=== PATIENT | male | born 1940 | race Caucasian/White ===

== ENCOUNTER → 2016-08-07 | Outpatient (CLI) | payer OTHER ==
[2016-08-07 10:05] LABS: Basophils # (auto) 0 uL; Basophils % (auto) 0.5 % (0.0-2.0); Eosinophils # (auto) 0.1 uL; Eosinophils % (auto) 1.6 % (0.0-7.0); Hematocrit 44.3 % (41.0-53.0); Hemoglobin 13.9 g/dL (13.5-17.5); Lymphocytes # (auto) 1.3 uL; Lymphocytes % (auto) 18.9 % (10.0-50.0); Mean Corpuscular Hemoglobin 30.6 pg (28.0-32.0); Mean Corpuscular Hgb Conc. 31.3 g/dL (32.0-36.0); Mean Corpuscular Volume 97.6 fL (80.0-100.0); Monocytes # (auto) 0.4 uL; Monocytes % (auto) 6.2 % (0.0-12.0); Neutrophils # (auto) 4.9 uL; Neutrophils % (auto) 72.8 % (37.0-80.0); Platelet Count (auto) 256 10^3/uL (140-450); Red Cell Distribution Width 13.2 % (11.6-16.0); White Blood Cell 6.7 10^3/uL (4.4-10.8)
[2016-08-07 10:20] LABS: Urine Bilirubin Negative (Negative); Urine Blood Negative /uL (Negative); Urine Color Yellow (Yellow); Urine Glucose Normal (Normal); Urine Ketone Negative (Negative); Urine Mucus FEW (None Seen); Urine Nitrite Negative (Negative); Urine RBC 1 /hpf (0 - 3); Urine Squamous Epithelial Cell FEW /hpf (<5); Urine Urobilinogen Normal (Negative); Urine pH 5.5 (5.0-8.0)
[2016-08-07 10:41] LABS: Albumin 3.9 g/dL (3.4-5.0); BUN/Creatinine Ratio 26.9; Bilirubin, Total 1.1 mg/dL (0.2-1.0); Potassium 4.2 mmol/L (3.5-5.1); Total Protein 7.8 g/dL (6.4-8.2)
== END | disposition home or self-care (01) ==
LOC: LAB 08:03
DX: I10 Essential (primary) hypertension (principal); R97.20 Elevated prostate specific antigen [PSA]; E55.9 Vitamin D deficiency, unspecified
CPT/HCPCS: 36415; 80053; 80061; 81001; 82306; 84153; 84154; 84443; 85025

== ENCOUNTER → 2016-08-20 | Outpatient (CLI) | payer OTHER ==
[2016-08-20 09:31] LABS: Basophils # (auto) 0 uL; Basophils % (auto) 0.4 % (0.0-2.0); Eosinophils # (auto) 0.2 uL; Eosinophils % (auto) 2.4 % (0.0-7.0); Hematocrit 42.3 % (41.0-53.0); Hemoglobin 14.1 g/dL (13.5-17.5); Lymphocytes # (auto) 1.5 uL; Lymphocytes % (auto) 22.8 % (10.0-50.0); Mean Corpuscular Hemoglobin 31.7 pg (28.0-32.0); Mean Corpuscular Hgb Conc. 33.3 g/dL (32.0-36.0); Mean Corpuscular Volume 95.1 fL (80.0-100.0); Mean Platelet Volume 7.5 fL (7.4-10.4); Monocytes # (auto) 0.5 uL; Monocytes % (auto) 8.1 % (0.0-12.0); Neutrophils # (auto) 4.4 uL; Neutrophils % (auto) 66.3 % (37.0-80.0); Platelet Count (auto) 236 10^3/uL (140-450); Red Cell Distribution Width 13.4 % (11.6-16.0); White Blood Cell 6.6 10^3/uL (4.4-10.8)
[2016-08-20 09:49] LABS: Albumin 3.8 g/dL (3.4-5.0); Calcium 9.2 mg/dL (8.5-10.1); Potassium 4.4 mmol/L (3.5-5.1); Total Protein 7.5 g/dL (6.4-8.2)
== END | disposition home or self-care (01) ==
LOC: LAB 08:46
PROVIDERS: ATTEND Internal Medicine
DX: R97.20 Elevated prostate specific antigen [PSA] (principal)
CPT/HCPCS: 36415; 80053; 83615; 84153; 84154; 85025

== ENCOUNTER → 2017-01-01 | Outpatient (CLI) | payer OTHER ==
[2017-01-01 10:40] LABS: Basophils # (auto) 0 uL; Basophils % (auto) 0.7 % (0.0-2.0); CONDITION Y; Eosinophils # (auto) 0.1 uL; Hematocrit 41.8 % (41.0-53.0); Hemoglobin 13.9 g/dL (13.5-17.5); Lymphocytes # (auto) 1.2 uL; Lymphocytes % (auto) 19.6 % (10.0-50.0); Mean Corpuscular Hemoglobin 32.3 pg (28.0-32.0); Mean Corpuscular Hgb Conc. 33.3 g/dL (32.0-36.0); Mean Corpuscular Volume 96.9 fL (80.0-100.0); Mean Platelet Volume 8.1 fL (7.4-10.4); Monocytes # (auto) 0.4 uL; Monocytes % (auto) 6.6 % (0.0-12.0); Neutrophils # (auto) 4.6 uL; Neutrophils % (auto) 72.1 % (37.0-80.0); Platelet Count (auto) 247 10^3/uL (140-450); Red Cell Distribution Width 13.4 % (11.6-16.0); White Blood Cell 6.4 10^3/uL (4.4-10.8)
[2017-01-01 11:15] LABS: Urine Bilirubin Negative (Negative); Urine Blood Negative /uL (Negative); Urine Ca Oxalate Crystal FEW (None Seen); Urine Color Yellow (Yellow); Urine Glucose Normal (Normal); Urine Ketone Negative (Negative); Urine Nitrite Negative (Negative); Urine RBC 1 /hpf (0 - 3); Urine Squamous Epithelial Cell FEW /hpf (<5); Urine Urobilinogen Normal (Negative)
[2017-01-01 11:41] LABS: Albumin 3.6 g/dL (3.4-5.0); Bilirubin, Total 0.9 mg/dL (0.2-1.0); Calcium 9.3 mg/dL (8.5-10.1); Total Protein 7.1 g/dL (6.4-8.2)
== END | disposition home or self-care (01) ==
LOC: LAB 08:47
PROVIDERS: ATTEND Internal Medicine
DX: E55.9 Vitamin D deficiency, unspecified (principal); I10 Essential (primary) hypertension; R92.0 Mammographic microcalcification found on diagnostic imaging of breast
CPT/HCPCS: 36415; 80053; 80061; 81001; 82306; 82607; 83036; 83615; 84153; 84154; 84443; 85025

== ENCOUNTER → 2017-05-19 | Outpatient (CLI) | payer OTHER ==
[2017-05-19 09:27] LABS: Basophils # (auto) 0 uL; Basophils % (auto) 0.6 % (0.0-2.0); Eosinophils # (auto) 0.1 uL; Eosinophils % (auto) 2.2 % (0.0-7.0); Hematocrit 41.7 % (41.0-53.0); Hemoglobin 14.4 g/dL (13.5-17.5); Lymphocytes # (auto) 1.7 uL; Mean Corpuscular Hemoglobin 32.7 pg (28.0-32.0); Mean Corpuscular Hgb Conc. 34.5 g/dL (32.0-36.0); Mean Corpuscular Volume 94.7 fL (80.0-100.0); Mean Platelet Volume 7.2 fL (6.9-10.8); Monocytes # (auto) 0.5 uL; Monocytes % (auto) 7.3 % (0.0-12.0); Neutrophils # (auto) 4.4 uL; Neutrophils % (auto) 64.9 % (37.0-80.0); Platelet Count (auto) 181 10^3/uL (140-450); Red Cell Distribution Width 13.1 % (11.8-14.3); White Blood Cell 6.8 10^3/uL (4.4-10.8)
[2017-05-19 10:32] LABS: Albumin 3.7 g/dL (3.4-5.0); BUN/Creatinine Ratio 27.5; Calcium 8.6 mg/dL (8.5-10.1); Total Protein 7.7 g/dL (6.4-8.2)
[2017-05-20 08:07] LABS: PSA Free 1.08 ng/mL
[2017-05-20 12:07] LABS: Prostate Specific Antigen 10.9 ng/mL (0.0-4.0)
== END | disposition home or self-care (01) ==
LOC: LAB 08:57
PROVIDERS: ATTEND Internal Medicine
DX: C61 Malignant neoplasm of prostate (principal)
CPT/HCPCS: 36415; 80053; 83615; 84153; 84154; 85025

== ENCOUNTER → 2017-09-15 | Outpatient (CLI) | payer OTHER ==
[2017-09-15 08:52] LABS: Basophils # (auto) 0 uL; Basophils % (auto) 0.4 % (0.0-2.0); Eosinophils # (auto) 0.1 uL; Eosinophils % (auto) 1.4 % (0.0-7.0); Hematocrit 46.2 % (41.0-53.0); Hemoglobin 15.3 g/dL (13.5-17.5); Lymphocytes # (auto) 1.6 uL; Lymphocytes % (auto) 17.7 % (10.0-50.0); Mean Corpuscular Hgb Conc. 33.2 g/dL (32.0-36.0); Mean Corpuscular Volume 96.6 fL (80.0-100.0); Monocytes # (auto) 0.7 uL; Monocytes % (auto) 7.7 % (0.0-12.0); Neutrophils # (auto) 6.5 uL; Neutrophils % (auto) 72.8 % (37.0-80.0); Platelet Count (auto) 174 10^3/uL (140-450); Red Blood Cells 4.79 10^6/uL (4.5-5.90); Red Cell Distribution Width 13.6 % (11.8-14.3); White Blood Cell 8.9 10^3/uL (4.4-10.8)
[2017-09-15 10:38] LABS: Albumin 3.8 g/dL (3.4-5.0); BUN/Creatinine Ratio 21.2; Bilirubin, Total 0.9 mg/dL (0.2-1.0); Calcium 8.8 mg/dL (8.5-10.1); Total Protein 8.1 g/dL (6.4-8.2)
== END | disposition home or self-care (01) ==
LOC: LAB 08:37
PROVIDERS: ATTEND Internal Medicine
DX: C61 Malignant neoplasm of prostate (principal)
CPT/HCPCS: 36415; 80053; 83615; 84153; 85025

== ENCOUNTER → 2018-04-01 | Outpatient (CLI) | payer OTHER ==
[2018-04-01 07:53] LABS: Basophils # (auto) 0 uL; Basophils % (auto) 0.6 % (0.0-2.0); Eosinophils # (auto) 0.1 uL; Eosinophils % (auto) 1.3 % (0.0-7.0); Hematocrit 40.1 % (41.0-53.0); Hemoglobin 13.3 g/dL (13.5-17.5); Lymphocytes # (auto) 1.4 uL; Lymphocytes % (auto) 18.8 % (10.0-50.0); Mean Corpuscular Hemoglobin 32.4 pg (28.0-32.0); Mean Corpuscular Hgb Conc. 33.1 g/dL (32.0-36.0); Mean Corpuscular Volume 97.8 fL (80.0-100.0); Monocytes # (auto) 0.6 uL; Monocytes % (auto) 7.9 % (0.0-12.0); Neutrophils # (auto) 5.2 uL; Neutrophils % (auto) 71.4 % (37.0-80.0); Platelet Count (auto) 189 10^3/uL (140-450); Red Cell Distribution Width 13.4 % (11.8-14.3); White Blood Cell 7.3 10^3/uL (4.4-10.8)
[2018-04-01 09:30] LABS: Albumin 3.5 g/dL (3.4-5.0); Calcium 8.4 mg/dL (8.5-10.1); Total Protein 7.3 g/dL (6.4-8.2)
== END | disposition home or self-care (01) ==
LOC: LAB 07:22
PROVIDERS: ATTEND Internal Medicine
DX: C61 Malignant neoplasm of prostate (principal)
CPT/HCPCS: 36415; 80053; 83615; 84153; 85025

== ENCOUNTER → 2018-06-30 | Outpatient (CLI) | payer OTHER, MEDICARE ==
[2018-06-30 10:40] LABS: Basophils # (auto) 0 uL; Basophils % (auto) 0.3 % (0.0-2.0); Eosinophils # (auto) 0.1 uL; Eosinophils % (auto) 1.8 % (0.0-7.0); Hematocrit 41.2 % (41.0-53.0); Hemoglobin 13.9 g/dL (13.5-17.5); Lymphocytes # (auto) 1.1 uL; Lymphocytes % (auto) 18.2 % (10.0-50.0); Mean Corpuscular Hemoglobin 32.8 pg (28.0-32.0); Mean Corpuscular Hgb Conc. 33.8 g/dL (32.0-36.0); Mean Corpuscular Volume 97.3 fL (80.0-100.0); Monocytes # (auto) 0.5 uL; Neutrophils # (auto) 4.2 uL; Neutrophils % (auto) 71.7 % (37.0-80.0); Nucleated Red Blood Cells % 0.1 %; Platelet Count (auto) 220 10^3/uL (140-450); Red Blood Cells 4.23 10^6/uL (4.5-5.90); Red Cell Distribution Width 13.5 % (11.8-14.3); White Blood Cell 5.9 10^3/uL (4.4-10.8)
[2018-06-30 10:50] LABS: Calcium 8.6 mg/dL (8.5-10.1); Potassium 3.8 mmol/L (3.5-5.1)
[2018-06-30 10:56] LABS: Albumin 3.9 g/dL (3.4-5.0); BUN/Creatinine Ratio 19.3; Bilirubin, Total 1.1 mg/dL (0.2-1.0); Total Protein 7.5 g/dL (6.4-8.2)
== END | disposition home or self-care (01) ==
LOC: LAB 09:13
PROVIDERS: ATTEND Internal Medicine
DX: C61 Malignant neoplasm of prostate (principal)
CPT/HCPCS: 36415; 80053; 83615; 84153; 85025

== ENCOUNTER → 2018-10-13 | Outpatient (CLI) | payer OTHER, MEDICARE ==
[2018-10-13 12:38] LABS: Basophils # (auto) 0.1 uL; Basophils % (auto) 0.7 % (0.0-2.0); Eosinophils # (auto) 0 uL; Eosinophils % (auto) 0.5 % (0.0-7.0); Hematocrit 42.3 % (41.0-53.0); Hemoglobin 14.1 g/dL (13.5-17.5); Lymphocytes # (auto) 1.3 uL; Lymphocytes % (auto) 17.7 % (10.0-50.0); Mean Corpuscular Hemoglobin 32.7 pg (28.0-32.0); Mean Corpuscular Hgb Conc. 33.3 g/dL (32.0-36.0); Mean Corpuscular Volume 98.1 fL (80.0-100.0); Monocytes # (auto) 0.6 uL; Monocytes % (auto) 7.4 % (0.0-12.0); Neutrophils # (auto) 5.5 uL; Neutrophils % (auto) 73.7 % (37.0-80.0); Nucleated Red Blood Cells % 0.1 %; Platelet Count (auto) 225 10^3/uL (140-450); Red Blood Cells 4.31 10^6/uL (4.5-5.90); White Blood Cell 7.5 10^3/uL (4.4-10.8)
[2018-10-13 13:28] LABS: Albumin 3.5 g/dL (3.4-5.0); Calcium 9.3 mg/dL (8.5-10.1)
[2018-10-13 13:31] LABS: BUN/Creatinine Ratio 22.4; Bilirubin, Total 0.9 mg/dL (0.2-1.0); Total Protein 7.3 g/dL (6.4-8.2)
== END | disposition home or self-care (01) ==
LOC: LAB 12:20
PROVIDERS: ATTEND Internal Medicine
DX: C61 Malignant neoplasm of prostate (principal)
CPT/HCPCS: 36415; 80053; 83615; 84153; 85025

== ENCOUNTER → 2018-12-31 | Outpatient (CLI) | payer OTHER ==
[~2018-12-31] MED LIST: AMIO200T33 PO; APIX5TAB PO; B-CO1TAB32 PO; CHOL20007 PO; CLIN1CAP4 PO; LEVO500T21 PO; SACC250C PO; TAM04C PO; VITA80009 PO
== END | disposition home or self-care (01) ==
LOC: XYW 09:51
PROVIDERS: ATTEND Internal Medicine
DX: I07.1 Rheumatic tricuspid insufficiency (principal); R42 Dizziness and giddiness
CPT/HCPCS: 93306

== ENCOUNTER → 2019-02-04 | Outpatient (CLI) | payer OTHER ==
[~2019-02-04] MED LIST changes: -CLIN1CAP4 PO; +CLIN300C8 PO
[2019-02-04 15:37] LABS: Basophils # (auto) 0 uL; Basophils % (auto) 0.7 % (0.0-2.0); Eosinophils # (auto) 0.1 uL; Hematocrit 38.8 % (41.0-53.0); Hemoglobin 12.7 g/dL (13.5-17.5); Lymphocytes # (auto) 1.1 uL; Lymphocytes % (auto) 20.5 % (10.0-50.0); Mean Corpuscular Hemoglobin 31.6 pg (28.0-32.0); Mean Corpuscular Hgb Conc. 32.6 g/dL (32.0-36.0); Mean Corpuscular Volume 96.8 fL (80.0-100.0); Monocytes # (auto) 0.5 uL; Monocytes % (auto) 8.7 % (0.0-12.0); Neutrophils # (auto) 3.6 uL; Neutrophils % (auto) 69.1 % (37.0-80.0); Platelet Count (auto) 195 10^3/uL (140-450); Red Blood Cells 4.01 10^6/uL (4.5-5.90); Red Cell Distribution Width 15.5 % (11.8-14.3); White Blood Cell 5.2 10^3/uL (4.4-10.8)
[2019-02-04 17:27] LABS: Potassium 4.1 mmol/L (3.5-5.1)
[2019-02-04 17:35] LABS: Albumin 2.9 g/dL (3.4-5.0); BUN/Creatinine Ratio 19.7; Bilirubin, Total 0.8 mg/dL (0.2-1.0); Calcium 8.5 mg/dL (8.5-10.1); Total Protein 6.3 g/dL (6.4-8.2)
== END | disposition home or self-care (01) ==
LOC: LAB 15:15
PROVIDERS: ATTEND Internal Medicine
DX: C61 Malignant neoplasm of prostate (principal); R97.20 Elevated prostate specific antigen [PSA]
CPT/HCPCS: 36415; 80053; 83615; 84153; 85025

== ENCOUNTER 2019-02-05 11:12 | Inpatient (IN) | payer OTHER ==
[~2019-02-05] VITALS: Ht 175.3 cm; Wt 54.0 kg
[2019-02-05] MEDS ORDERED: CLINDAMYCIN 600MG IV 50 ML IV ONE (12:00)
[2019-02-05 12:38] LABS: Basophils # (auto) 0 uL; Basophils % (auto) 0.6 % (0.0-2.0); Eosinophils # (auto) 0 uL; Hematocrit 39.1 % (41.0-53.0); Hemoglobin 12.8 g/dL (13.5-17.5); Lymphocytes % (auto) 19.4 % (10.0-50.0); Mean Corpuscular Hemoglobin 31.9 pg (28.0-32.0); Mean Corpuscular Hgb Conc. 32.8 g/dL (32.0-36.0); Mean Corpuscular Volume 97.2 fL (80.0-100.0); Monocytes # (auto) 0.4 uL; Monocytes % (auto) 8.5 % (0.0-12.0); Neutrophils # (auto) 3.7 uL; Neutrophils % (auto) 70.5 % (37.0-80.0); Platelet Count (auto) 182 10^3/uL (140-450); Red Blood Cells 4.02 10^6/uL (4.5-5.90); Red Cell Distribution Width 15.7 % (11.8-14.3); White Blood Cell 5.2 10^3/uL (4.4-10.8)
[2019-02-05 12:53] LABS: INR 1.16 (0.9-1.15); Partial Thromboplastin Time 35.8 sec (23.64-32.05)
[2019-02-05] MEDS ORDERED: LIDOCAINE 2% JELLY 11ml (GLYDO) UR ONE (13:00)
[2019-02-05 13:01] LABS: Alanine Aminotransferase 150 U/L (16-61); Albumin 2.9 g/dL (3.4-5.0); Anion Gap 5 (5-15); Aspartate Aminotransferase 127 U/L (15-37); BUN/Creatinine Ratio 20.7; Blood Urea Nitrogen 31 mg/dL (7-18); Calcium 8.6 mg/dL (8.5-10.1); Carbon Dioxide 30 mmol/L (21-32); Chloride 108 mmol/L (98-107); GFR African American 58 mL/min; GFR Non-African American 48 mL/min; Glucose 103 mg/dL (74-106); Potassium 3.9 mmol/L (3.5-5.1); Sodium 143 mmol/L (136-145)
[2019-02-05 13:06] LABS: Alkaline Phosphatase 97 U/L (45-117); Bilirubin, Total 0.9 mg/dL (0.2-1.0); Total Protein 6.3 g/dL (6.4-8.2)
[2019-02-05] MEDS ORDERED: traMADol HCL 50 MG TAB PO PRN (13:30)
[2019-02-05] MEDS ORDERED: ACETAMINOPHEN 500 MG TAB PO PRN (13:30)
[2019-02-05] MEDS ORDERED: PROMETHAZINE HCL 25 MG/ML 1ML IV PRN (13:30)
[2019-02-05] MEDS ORDERED: TEMAZEPAM 15 MG CAP PO PRN (13:30)
[2019-02-05] MEDS ORDERED: LACTULOSE 20Gm/30ML SOLN PO PRN (13:30)
[2019-02-05] MEDS: SODIUM CHLORIDE 0.9% 1,000 ML IV SCH (13:43)
[2019-02-05] MEDS: cefTRIAXone 1GM/50ML D5W 50 ML IV SCH (14:16)
[2019-02-05 14:19] LABS: Urine Bacteria FEW /hpf (None Seen); Urine Blood 1+ /uL (Negative); Urine Specific Gravity 1.019 (1.001-1.035); Urine WBC 216 /hpf (0 - 3)
--- NOTE | 2019-02-05 15:15 | NUR ---
MS admit from ER SHEA GARCIA Can admitted to MS. Patient oriented to Louise Chambers primary RN, unit, room, bed, and unit policies regarding patient care and visiting hours. Patient weighed by bed scale and encouraged to call if they need something. All questions and concerns addressed, patient verbalized understanding. Instructed patient on POC, fall precautions and to call for assistance. Patient verbalized understanding, reinforcement needed. Patient is A&Ox x2 (self, place). Bed in lowest locked position with x2 side rails up and call light within reach. Patient demonstrated proper use of the call light. Will continue to monitor q1hr & PRN.
[2019-02-05] MEDS ORDERED: APIX5TAB PO (15:51)
[2019-02-05 17:00] VITALS: BP 121/59
--- NOTE | 2019-02-05 17:00 | NUR ---
Visitor at bedside Nunu Gutierres at bedside.
[2019-02-05 17:02] VITALS: BP 121/59
--- NOTE | 2019-02-05 17:40 | NUR ---
WOUND CARE NOTE: Wound care in to see patient per wound care request regarding multiple pressure injuries, skin issue that are noted present on admission. Patient is 78 years old male admitted for L Foot Pressure Injuries. Patient is resting in bed in Rm. 217B. He's awake, alert and follow simple direction. He's in no stated pain at this time however mild pain noted upon turning. Patient needs assistance in turning and repositioning. His Russ score is 15. Skin/wound assessment done with the assistance of patient's nurse, ABDI Gil. Noted patient's posterior medial back has intact DTI measuring 5x4cm, dark red with blister. His sacrum has 8x8cm open, evolving DTI, dark maroon with scant serosanguineous drainage. Deana care given, applied Z Guard cream and covered with Opti foam sacral dressing. Patient's R heel has DTI that looks evolving to eschar. The proximal aspect is soft and boggy and the lateral area has hard eschar. Patient's L heel has 2.5x4cm eschar wound (Unstageable pressure injury)Wound is covered with black and yellow necrotic tissue, wound edges is red. Bilateral heel pressure injures has no drainage and odor. Bedside nurse, applied protective foam dressing. Redness/abrasion noted to patient's L posterolateral calf. Patient is unable to give information about his wounds. Photograph of patient's wounds are taken for reference. Patient tolerated well, repositioned for comfort. Bed in low position, call mcpherson on hand with all safety precautions in placed. RECOMMENDATION: BID/PRN dressing change sacral wound per MD order, Dietary consult, frequent turning and repositioning schedule as condition permits, redistribute pressure points with pillows, air mattress (ordered), Foam boots to BLE , continue monitoring by wound care while patient is hospitalized. Addendum: 02/05/19 at 1917 by Miladis Alegre RN Amended: Links added.
--- NOTE | 2019-02-05 17:49 | NUR ---
barrel lathe operator was at bedside Wound care provided. This RN was at bedside.
--- NOTE | 2019-02-05 18:30 | NUR ---
Closing note patient resting in bed with even and unlabored respirations, no distress noted. Fall precautions in place with bed in lowest locked position with call light within reach. The dressings to the right & left foot are clean, dry and intact.
--- NOTE | 2019-02-05 18:38 | NUR ---
MRSA swab collected and sent to lab per MD's order.
--- NOTE | 2019-02-05 19:22 | NUR ---
Care endorsed to ABDI Lucas.
--- NOTE | 2019-02-05 20:15 | NUR ---
PT TRANSFERRED TO SPECIALTY BED WITH AIR MATTRESS NOW.
[2019-02-05 21:43] VITALS: BP 98/44
[2019-02-05] MEDS: CLINDAMYCIN 600MG IV 50 ML IV SCH (21:44)
[2019-02-06 05:00] VITALS: BP 115/52
[2019-02-06] MEDS: SODIUM CHLORIDE 0.9% 1,000 ML IV SCH ×3 (06:07→19:24)
[2019-02-06] MEDS: CLINDAMYCIN 600MG IV 50 ML IV SCH ×3 (06:07→22:06)
[2019-02-06 06:39] LABS: Albumin 2.6 g/dL (3.4-5.0); BUN/Creatinine Ratio 22.7; Bilirubin, Total 0.7 mg/dL (0.2-1.0); Calcium 8.3 mg/dL (8.5-10.1); Total Protein 5.9 g/dL (6.4-8.2)
--- NOTE | 2019-02-06 07:30 | NUR ---
Opening Shift Note Assumed care of patient, awake and alert. No S/S of distress/SOB or pain. Instructed on POC and to call for assist PRN, will continue to monitor for changes Q1hr and PRN.
[2019-02-06 08:00] VITALS: BP 122/58
--- NOTE | 2019-02-06 08:22 | NUR ---
Dr. Marte in to see patient for podiatry consult. Per Dr. Marte, patient needs sirisha boots, leave heels open to air.
[2019-02-06] MEDS: PANTOPRAZOLE 40 MG TAB PO SCH (09:53)
[2019-02-06] MEDS: ENOXAPARIN SOD 40 MG/0.4 ML SYRINGE SC SCH (09:53)
[2019-02-06] MEDS: cefTRIAXone 1GM/50ML D5W 50 ML IV SCH (09:54)
[2019-02-06 12:00] VITALS: BP 98/48
--- NOTE | 2019-02-06 13:00 | NUR ---
Patient is NPO for US gallbladder.
--- NOTE | 2019-02-06 14:15 | NUR ---
Patient cleaned and repositioned. [place] boots to legs. Linens changed. Will continue to monitor.
[2019-02-06 16:58] VITALS: BP 104/55
--- NOTE | 2019-02-06 19:30 | NUR ---
Opening Shift Note Pt is resting in bed with resp rate even and unlabored. No s/s of any distress noted at this time. Pt on air mattress, bilat heels w/ no drsgs, and wearing sirisha boots. Pt is NPO awaiting US and dinner waiting at bedside. Bed is low, wheels are locked, and call light is with in reach. Bed alarm is set for pt safety. Will continue to monitor q 1 hr and prn.
[2019-02-06 22:00] VITALS: BP 112/64
[2019-02-07 04:00] VITALS: BP 133/58
[2019-02-07] MEDS: SODIUM CHLORIDE 0.9% 1,000 ML IV SCH ×2 (06:33→14:49)
[2019-02-07] MEDS: CLINDAMYCIN 600MG IV 50 ML IV SCH ×3 (06:34→21:37)
[2019-02-07 08:00] VITALS: BP 132/61
--- NOTE | 2019-02-07 08:00 | NUR ---
Morning note Patient resting in bed with even and unlabored respirations, no distress noted. Instructed patient on POC, fall precautions and to call for assistance. Patient verbalized understanding, reinforcement needed. Patient is A&Ox x4. Bed in lowest locked position with x2 side rails up and call light within reach. Patient on speciality mattress per MD's order. Will continue to monitor q1hr & PRN.
[2019-02-07] MEDS: PANTOPRAZOLE 40 MG TAB PO SCH (08:38)
[2019-02-07] MEDS: cefTRIAXone 1GM/50ML D5W 50 ML IV SCH (08:38)
[2019-02-07] MEDS: ENOXAPARIN SOD 40 MG/0.4 ML SYRINGE SC SCH (08:39)
--- NOTE | 2019-02-07 08:45 | NUR ---
Assisted patient with breakfast meal tray Standby assistance provided. Call light within reach.
--- NOTE | 2019-02-07 10:59 | NUR ---
RE: Turn & position intervention Instructed and educated patient on pressure ulcer prevention and skin integrity maintenance. Patient verbalized understanding. Patient stated "I will turn in a little bit. I don't want to right now." Visitor at bedside. Addendum: 02/07/19 at 1112 by Louise Chambers RN Amended: Links added.
[2019-02-07 12:00] VITALS: BP 118/56
--- NOTE | 2019-02-07 12:41 | NUR ---
VIC NAPOLES was at bedside- Dr. Zapien Orders received and read back to verify.
--- NOTE | 2019-02-07 12:44 | NUR ---
Assisted patient with lunch meal tray Standby assistance provided. Call light within reach.
[2019-02-07 16:58] VITALS: BP 104/58
--- NOTE | 2019-02-07 18:50 | NUR ---
Closing note patient resting in bed with even and unlabored respirations, no distress noted. Call light within reach.
--- NOTE | 2019-02-07 19:10 | NUR ---
OPENING NOTE- NOC SHIFT PATIENT IS ALERT AND ORIENTED X4, ANSWERS IN COMPLETE SENTENCES. PATIENT IS IN BED, SPECIALTY AIR MATTRESS. PATIENT IS WEARING FOOT CRADLE BOOTS TO BOTH FEET. NO S/SX OF DISTRESS, SOB OR PAIN. BED IS LOCKED IN LOWEST POSITION, BED RAILS UP X2 AND HEAD OF BED IS UP >30 FOR SAFETY PRECAUTIONS. BEDSIDE TABLE WITHIN REACH, CALL LIGHT WITHIN REACH, PERSONAL BELONGINGS WITHIN REACH. DISCUSSED POC WITH PATIENT AND INSTRUCTED PATIENT TO CALL PRN; PATIENT VERBALIZED UNDERSTANDING. WILL CONTINUE TO MONITOR Q1H AND PRN.
--- NOTE | 2019-02-07 19:22 | NUR ---
Care endorsed to ABDI Lucas.
[2019-02-07 21:30] VITALS: BP 112/73
[2019-02-08] MEDS: SODIUM CHLORIDE 0.9% 1,000 ML IV SCH ×4 (02:00→21:02)
--- NOTE | 2019-02-08 03:16 | NUR ---
MATTRESS ERROR MESSAGE CALLED TO REPORT ERROR MESSAGE ON SPECIALTY MATTRESS MONITOR. AWAITING TECH CALL BACK. CONFIRMATION NUMBER [id number]. UNABLE TO CONFIRM IF MATTRESS IS PROPERLY INFLATED.
[2019-02-08 04:20] VITALS: BP 111/47
[2019-02-08] MEDS: CLINDAMYCIN 600MG IV 50 ML IV SCH ×4 (05:28→22:14)
--- NOTE | 2019-02-08 06:54 | NUR ---
CLOSING NOTE- NOC SHIFT PATIENT IS IN BED. NO ACUTE CHANGES DURING PICKER BOX OPERATOR. WILL ENDORSE TO DAY SHIFT NURSE TO FOLLOW UP WITH MATTRESS ERROR MESSAGE. NO S/SX OF DISTRESS, SOB OR PAIN.
[2019-02-08 07:48] LABS: Basophils # (auto) 0 uL; Basophils % (auto) 0.8 % (0.0-2.0); Eosinophils # (auto) 0.2 uL; Eosinophils % (auto) 2.6 % (0.0-7.0); Hematocrit 35.8 % (41.0-53.0); Lymphocytes # (auto) 1.3 uL; Lymphocytes % (auto) 21.1 % (10.0-50.0); Mean Corpuscular Hemoglobin 32.4 pg (28.0-32.0); Mean Corpuscular Hgb Conc. 33.5 g/dL (32.0-36.0); Mean Corpuscular Volume 96.6 fL (80.0-100.0); Monocytes # (auto) 0.7 uL; Monocytes % (auto) 11.1 % (0.0-12.0); Neutrophils # (auto) 3.8 uL; Neutrophils % (auto) 64.4 % (37.0-80.0); Platelet Count (auto) 157 10^3/uL (140-450); Red Blood Cells 3.71 10^6/uL (4.5-5.90); Red Cell Distribution Width 16.1 % (11.8-14.3)
[2019-02-08 08:00] VITALS: BP 112/51
--- NOTE | 2019-02-08 08:00 | NUR ---
Morning note Patient resting in bed with even and unlabored respirations, no distress noted. Instructed patient on POC, fall precautions, pressure ulcer prevention and to call for assistance. Patient verbalized understanding, reinforcement needed. Patient is A&Ox x4. Bed in lowest locked position with x2 side rails up and call light within reach. Patient on speciality mattress per MD's order. Will continue to monitor q1hr & PRN.
[2019-02-08 08:01] LABS: BUN/Creatinine Ratio 25.4; Calcium 7.9 mg/dL (8.5-10.1)
[2019-02-08] MEDS: cefTRIAXone 1GM/50ML D5W 50 ML IV SCH (08:30)
[2019-02-08] MEDS: ENOXAPARIN SOD 40 MG/0.4 ML SYRINGE SC SCH (08:31)
[2019-02-08] MEDS: PANTOPRAZOLE 40 MG TAB PO SCH (08:31)
[2019-02-08 10:20] LABS: Hepatitis B Surface Antibody Negative
--- NOTE | 2019-02-08 10:31 | NUR ---
Patient transferred to [facility] mattress patient tolerated well. Bed in lowest locked position with call light within reach.
--- NOTE | 2019-02-08 10:32 | NUR ---
[place] catheter care provided patient tolerated well.
[2019-02-08 10:48] LABS: Hepatitis A Total Antibody Negative
--- NOTE | 2019-02-08 11:16 | NUR ---
assessment re: ss consult living situation Patient is a 78 year old male who is alert and oriented. Prior to admission patient lived at a room and board with his friend Nunu Gutierres [phone] in [place] and functioned with her assistance. Patient has a cane, fww, and a wheelchair for home use. Patient informed me he wants a new room and board in the [facility]. I have provided patient with a list of room and boards. I will return after patient has a chance to look over the different facilities. Addendum: 02/10/19 at 1120 by Izabella GRANT Amended: Links added.
[2019-02-08 11:28] LABS: Hepatitis B Core Total AB Negative; Hepatitis B Surface Antigen Negative (Negative); Hepatitis C Antibody Negative (Negative)
[2019-02-08 13:00] VITALS: BP 109/56
--- NOTE | 2019-02-08 15:38 | NUR ---
Nutrition Assessment Notes please see attached link for complete assessment Est. Needs IBW 72 [id number] kcal (25-30 kcal/kgBW), 72-79 gms pro (1.0-1.1 gms/kgBW d/t elev RFT wounds). Will continue to monitor pertinent labs and reassess nutrient need prn Addendum: 02/08/19 at [address] Amended: Links added.
[2019-02-08 17:00] VITALS: BP 128/60
--- NOTE | 2019-02-08 18:35 | NUR ---
Closing note patient resting in bed with even and unlabored respirations, no distress noted. Patient on speciality mattress per MD's order. Patient has bilateral heels off-loaded with foam boots per MD's order. IV to the RFA is clean, dry and intact with no s/s of phlebitis and/or infiltration. Patient educated on pressure ulcer prevention. Patient verbalized understanding. Patient is A&Ox4. Call light within reach.
--- NOTE | 2019-02-08 19:10 | NUR ---
OPENING NOTE- NOC SHIFT PATIENT IS IN BED, BED IS LOCKED IN LOWEST POSITION, BED RAIL UP X2 AND HEAD OF BED IS UP >30 DEGREES FOR SAFETY PRECAUTIONS. PATIENT IS ON SPECIALTY MATTRESS. BEDSIDE TABLE WITHIN REACH, CALL LIGHT WITHIN REACH, PERSONAL BELONGINGS WITHIN REACH. DISCUSSED POC WITH PATIENT AND INSTRUCTED PATIENT TO CALL PRN; PATIENT VERBALIZED UNDERSTANDING. WILL CONTINUE TO MONITOR Q1H AND PRN. NO S/SX OF DISTRESS OR SOB. PATIENT DENIES PAIN AT THIS TIME. WILL CONTINUE TO MONITOR Q1H AND PRN.
--- NOTE | 2019-02-08 19:20 | NUR ---
PATIENT REQUESTS TO BE CONNECTED TO A "FRIEND'S" NUMBER WHICH HE HAS ON A PAPER AT BEDSIDE. PATIENT STATES THAT HE WANTS TO CALL HER (DAMIAN) TO SEE IF SHE CAN RENT HIM A ROOM AND TAKE CARE OF HIM. PATIENT STATED THAT THE CALL WAS NOT ANSWERED.
[2019-02-08 23:07] VITALS: BP 119/55
[2019-02-09] MEDS: SODIUM CHLORIDE 0.9% 1,000 ML IV SCH ×2 (07:24→10:57)
[2019-02-09 09:00] VITALS: BP 140/69
[2019-02-09] MEDS: cefTRIAXone 1GM/50ML D5W 50 ML IV SCH (09:00)
[2019-02-09] MEDS: PANTOPRAZOLE 40 MG TAB PO SCH (09:59)
[2019-02-09] MEDS: ENOXAPARIN SOD 40 MG/0.4 ML SYRINGE SC SCH (09:59)
[2019-02-09 13:00] VITALS: BP 115/56
[2019-02-09] MEDS: CLINDAMYCIN 600MG IV 50 ML IV SCH ×2 (14:00→21:51)
--- NOTE | 2019-02-09 14:20 | NUR ---
re-assessment Madonna from [facility] has met with patient and Elicia from [facility] room and board has met with patient. Patient has decided [facility] [id number] [facility] [id number]. Waiting on discharge now. Addendum: 02/10/19 at 1121 by Izabella GRANT Amended: Links added.
[2019-02-09 17:00] VITALS: BP 141/71
--- NOTE | 2019-02-09 19:10 | NUR ---
OPENING NOTE- NOC SHIFT PATIENT IS ALERT AND ORIENTED RESTING IN BED. PATIENT IS ON SPECIALTY MATTRESS. BED RAILS UP X2 AND HEAD OF BED IS UP >30 DEGREES FOR SAFETY PRECAUTIONS, BEDSIDE TABLE WITHIN REACH, CALL LIGHT WITHIN REACH, PERSONAL BELONGINGS WITHIN REACH. DISCUSSED POC WITH PATIENT AND INSTRUCTED PATIENT TO CALL PRN; PATIENT VERBALIZES UNDERSTANDING. WILL CONTINUE TO MONITOR Q1H AND PRN. NO S/SX OF DISTRESS OR SOB. PATIENT DENIES PAIN AT THIS TIME.
[2019-02-09 22:00] VITALS: BP 123/61
[2019-02-10] MEDS: SODIUM CHLORIDE 0.9% 1,000 ML IV SCH ×2 (02:55→13:24)
--- NOTE | 2019-02-10 03:32 | NUR ---
PATIENT ON BEDPAN; INSTRUCTED PATIENT TO CALL WHEN HE IS READY TO COME OFF THE EDMONDS. PATIENT VERBALIZES UNDERSTANDING.
--- NOTE | 2019-02-10 03:45 | NUR ---
WOUND CARE TO [facility] AND [facility] AREA PER ORDERS. PATIENT OFF BEDPAN. PATIENT DID NOT HAVE A BOWEL MOVEMENT AT THIS TIME, HE STATES THAT IT WAS GAS. ENCOURAGED PATIENT TO CALL PRN.
[2019-02-10 05:00] VITALS: BP 130/63
[2019-02-10] MEDS: CLINDAMYCIN 600MG IV 50 ML IV SCH ×2 (05:58→14:00)
--- NOTE | 2019-02-10 06:59 | NUR ---
PATIENT PLACED ON BED EDMONDS.
--- NOTE | 2019-02-10 07:00 | NUR ---
CLOSING NOTE- NOC SHIFT PATIENT IS COMFORTABLE IN BED USING BED EDMONDS. WILL ENDORSE CARE TO DAY SHIFT NURSE AND MAKE HER AWARE THAT PATIENT IS ON BED EDMONDS. PATIENT WAS PLACED ON BEDPAN BY DAY SHIFT NURSE WATERWORKS CHIEF ENGINEER.
[2019-02-10 09:00] VITALS: BP 138/66
[2019-02-10] MEDS: cefTRIAXone 1GM/50ML D5W 50 ML IV SCH (10:55)
[2019-02-10] MEDS: PANTOPRAZOLE 40 MG TAB PO SCH (10:55)
[2019-02-10] MEDS: ENOXAPARIN SOD 40 MG/0.4 ML SYRINGE SC SCH (10:55)
--- NOTE | 2019-02-10 16:32 | NUR ---
PICTURES TAKEN OF WOUNDS ON BACK, BUTTOCK, AND BILATERAL HEELS. PEREZ CATHETER DISCONTINUED. ALL APPROPRIATE PAPERWORK SIGNED. PT DISCHARGED TO BOARDING CARE VIA WHEELCHAIR TRANSPORT APPROX. 1600.
--- NOTE | 2019-02-10 16:52 | NUR ---
re-assessment Ss consult [facility] for Wound care faxed to [facility] ph:[phone] fx: [phone] per Carmenza [facility] has accepted and service to start in 24-48 hrs. Pt agrees to discharge plan to Katie sutton with wound care. Addendum: 02/11/19 at 4222 by Izabella GRANT Amended: Links added.
== END 2019-02-10 17:00 | disposition home health service (06) | DRG 593 ==
LOC: ER 11:14 → OVERFLOW 11:15 → CENTRAL 15:10
PROVIDERS: ADMIT Internal Medicine; ATTEND Family Medicine
DX: L89.153 Pressure ulcer of sacral region, stage 3 (principal); Z68.1 Body mass index [BMI] 19.9 or less, adult; E44.0 Moderate protein-calorie malnutrition; R62.7 Adult failure to thrive; E86.0 Dehydration; K80.20 Calculus of gallbladder without cholecystitis without obstruction; L89.629 Pressure ulcer of left heel, unspecified stage; L89.619 Pressure ulcer of right heel, unspecified stage; G47.00 Insomnia, unspecified; N40.0 Benign prostatic hyperplasia without lower urinary tract symptoms; I48.91 Unspecified atrial fibrillation; Z86.718 Personal history of other venous thrombosis and embolism; Z85.46 Personal history of malignant neoplasm of prostate; Z79.899 Other long term (current) drug therapy
CPT/HCPCS: 36415; 51702; 71045; 73630; 76705; 78226; 80048; 80053; 81001; 83605; 83735; 83880; 84484; 85025; 85610; 85730; 86704; 86706; 86708; 86803; 87040; 87081; 87086; 87205; 87340; 93005; 94761; 96365; 96366; 96368; G0378; J0696; J3490

== ENCOUNTER → 2019-03-09 | Outpatient (CLI) | payer OTHER ==
[~2019-03-09] MED LIST changes: -CLIN300C8 PO; -LEVO500T21 PO
[2019-03-09 15:27] LABS: Basophils # (auto) 0 uL; Basophils % (auto) 0.5 % (0.0-2.0); Eosinophils # (auto) 0.1 uL; Eosinophils % (auto) 1.4 % (0.0-7.0); Hematocrit 47.3 % (41.0-53.0); Hemoglobin 15.6 g/dL (13.5-17.5); Lymphocytes # (auto) 1.7 uL; Mean Corpuscular Hemoglobin 32.3 pg (28.0-32.0); Mean Corpuscular Volume 97.6 fL (80.0-100.0); Monocytes # (auto) 0.6 uL; Monocytes % (auto) 6.5 % (0.0-12.0); Neutrophils # (auto) 6.4 uL; Neutrophils % (auto) 72.6 % (37.0-80.0); Nucleated Red Blood Cells % 0.1 %; Platelet Count (auto) 260 10^3/uL (140-450); Red Blood Cells 4.84 10^6/uL (4.5-5.90); Red Cell Distribution Width 15.9 % (11.8-14.3); White Blood Cell 8.8 10^3/uL (4.4-10.8)
[2019-03-09 15:45] LABS: Albumin 2.8 g/dL (3.4-5.0); Calcium 8.7 mg/dL (8.5-10.1); Potassium 3.6 mmol/L (3.5-5.1)
[2019-03-09 15:48] LABS: BUN/Creatinine Ratio 23.9; Total Protein 6.4 g/dL (6.4-8.2)
== END | disposition home or self-care (01) ==
LOC: LAB 15:03
PROVIDERS: ATTEND Internal Medicine
DX: C61 Malignant neoplasm of prostate (principal); R97.20 Elevated prostate specific antigen [PSA]
CPT/HCPCS: 36415; 80053; 83615; 84153; 85025

== ENCOUNTER 2019-03-18 18:42 | Emergency (ER) | payer OTHER ==
[~2019-03-18] VITALS: Ht 167.6 cm; Wt 65.8 kg
[2019-03-18 21:17] LABS: Basophils # (auto) 0 uL; Basophils % (auto) 0.6 % (0.0-2.0); Eosinophils # (auto) 0.1 uL; Eosinophils % (auto) 0.9 % (0.0-7.0); Hematocrit 38.8 % (41.0-53.0); Lymphocytes # (auto) 1.4 uL; Mean Corpuscular Hemoglobin 32.3 pg (28.0-32.0); Mean Corpuscular Hgb Conc. 33.5 g/dL (32.0-36.0); Mean Corpuscular Volume 96.5 fL (80.0-100.0); Monocytes # (auto) 0.5 uL; Monocytes % (auto) 6.1 % (0.0-12.0); Neutrophils # (auto) 5.6 uL; Neutrophils % (auto) 74.4 % (37.0-80.0); Nucleated Red Blood Cells % 0.1 %; Platelet Count (auto) 182 10^3/uL (140-450); Red Blood Cells 4.03 10^6/uL (4.5-5.90); Red Cell Distribution Width 15.7 % (11.8-14.3); White Blood Cell 7.6 10^3/uL (4.4-10.8)
[2019-03-18 21:30] LABS: Albumin 2.4 g/dL (3.4-5.0); BUN/Creatinine Ratio 27.6; Calcium 8.2 mg/dL (8.5-10.1); Potassium 4.9 mmol/L (3.5-5.1)
[2019-03-18 21:33] LABS: Total Protein 5.5 g/dL (6.4-8.2)
[2019-03-18] MEDS ORDERED: ONDANSETRON ODT 4 MG TAB PO ONE (22:15)
[2019-03-19] MEDS ORDERED: ONDANSETRON ODT 4 MG TAB PO ONE ×2 (05:00→15:00)
[2019-03-19 18:00] VITALS: BP 112/55
== END 2019-03-19 18:31 ==
LOC: EDBD 18:42 → EDUNIT# 18:42 → ER 18:44
DX: S91.302A Unspecified open wound, left foot, initial encounter (principal); S91.301A Unspecified open wound, right foot, initial encounter; S31.000A Unspecified open wound of lower back and pelvis without penetration into retroperitoneum, initial encounter; R53.1 Weakness; Z59.0 Homelessness; X58.XXXA Exposure to other specified factors, initial encounter; Y93.89 Activity, other specified; Y99.8 Other external cause status; Y92.89 Other specified places as the place of occurrence of the external cause
CPT/HCPCS: 36415; 71045; 80053; 85025; 93005; 99284; Q0162